=== PATIENT | female | born 1955 | race Caucasian/White ===

== ENCOUNTER 2019-08-20 18:46 | Emergency (ER) | payer BC ==
[~2019-08-20] VITALS: Ht 160 cm; Wt 120.2 kg
[~2019-08-20 18:46] MED LIST: ADULT LOW DOSE81 MG PO; ADVAIR 100-501 EACH; ALEVE220 MG; AZITHROMYCIN 2250 MG PO; BENADRYL25 MG PO; COLACE100 MG PO; DEMEROL50 MG; DITROPAN XL5 M1 PO; FEMHRT 1-5 TAB1 EACH; IBUPROFEN 400400 M1; LEXAPRO 10 MG T10 MG; MIRALAX255 GM; MUCINEX600 MG; NASOCORT; NORCO 5-325 TA1 EACH PO; NORVASC10 MG; OXYCODONE HCL 55 MG PO; PREDNISONE50 MG PO; PRINIVIL10 MG; SENNA PO; TYLENOL EX-STR500 M2 PO; ULTRAM 50MG TAB50 MG PO; UNISOM SLEEP AI25 MG; UNKNOWN ABX; XANAX XR1 MG PO; ZPAK PO; ZYRTEC10 M2; ZYRTEC10 M2 PO
[2019-08-20 19:59] LABS: ABSOLUTE BASOPHILS 0.1 thou/uL (0.0-0.2); ABSOLUTE EOSINOPHILS 0.1 thou/uL (0.0-0.7); ABSOLUTE MONOCYTES 0.7 thou/uL (0.0-1.2); ABSOLUTE NEUTROPHILS 6.5 thou/uL (1.6-8.1); BASOPHILS 1.2 %; EOSINOPHILS 1.2 %; HEMATOCRIT 38.7 % (37.0-47.0); MCH 29.5 pg (26.0-34.0); MCHC 33.6 g/dL (28.0-37.0); MCV 87.7 fL (80.0-100.0); MONOCYTES 6.9 %; MPV 8.5 fl. (7.2-11.1); NUCLEATED RBCS 0 /100WBC; PLATELET COUNT* 267 thou/uL (150-400); POLYS 69.7 %; RBC 4.41 mil/uL (4.20-5.00); RDW-CV 14.1 % (10.5-14.5); WBC 9.4 thou/uL (4.0-11.0)
[2019-08-20 20:02] LABS: INFLUENZA A ANTIGEN Negative (Negative); INFLUENZA B ANTIGEN Negative (Negative)
[2019-08-20 20:14] LABS: CALCIUM 8.3 mg/dL (8.5-10.1); CREATININE 0.8 mg/dL (0.6-1.3); POTASSIUM 3.4 mmol/L (3.5-5.1)
[2019-08-20 20:20] LABS: ALBUMIN 3.5 g/dL (3.4-5.0); TOTAL BILIRUBIN 0.4 mg/dL (<0.1-1.0)
[2019-08-20 20:43] LABS: URINE BILIRUBIN NEGATIVE (Negative); URINE BLOOD TRACE (Negative); URINE CLARITY CLEAR; URINE COLOR YELLOW; URINE GLUCOSE-RANDOM NEGATIVE (Negative); URINE KETONES NEGATIVE (Negative); URINE LEUKOCYTES-REFLEX NEGATIVE (Negative); URINE NITRITE-REFLEX NEGATIVE (Negative); URINE PROTEIN NEGATIVE (Negative); URINE SPECIFIC GRAVITY 1.025 (1.005-1.030); URINE UROBILINOGEN 0.2 E.U./dl (0.2-1.0)
[2019-08-20] MEDS ORDERED: VOLTAREN GEL 1100 G1 TOP (21:11)
[2019-08-20] MEDS ORDERED: PROTONIX40 M1 PO (21:12)
[2019-08-20] MEDS ORDERED: MONTELUKAST SODI4 M1 PO (21:12)
[2019-08-20] MEDS ORDERED: TOPAMAX100 MG PO (21:13)
[2019-08-20] MEDS ORDERED: LIPITOR80 MG PO (21:13)
[2019-08-20] MEDS ORDERED: ASA81BEC PO (21:13)
[2019-08-20] MEDS ORDERED: ZYRTEC10 M4 PO (21:14)
[2019-08-20] MEDS ORDERED: ESCITALOPRA5 MG/5 ML PO (21:14)
[2019-08-20] MEDS ORDERED: DERMACINRX5000 UNIT PO (21:15)
[2019-08-20 23:10] VITALS: BP 133/64
--- NOTE | 2019-08-21 16:35 | EKG ---
[place] [address] ELECTROCARDIOGRAM REPORT Name: CASSIE GREER Room: [facility]#: [id number] Admission: 08/20/19 Attend Phys: Discharge: 08/20/19 Date of : 55 Date of Service: 08/20/191849 Report #: [id number] THIS REPORT FOR: //name// [facility] ED Test Date: 2019-08-20 Test Time: 18:50:52 Pat Name: CASSIE GREER Department: Room: Gender: Immigration Case Manager: : 1955 Requested By: Maynor Roman Order Number: [id number] MD: Gabriel Dominguez Measurements Intervals [place] Rate: 79 P: 57 GA: 156 QRS: -4 QRSD: 88 T: 41 QT: 404 QTc: 464 Interpretive Statements Sinus rhythm Abnormal R-wave progression, early transition Compared to ECG 07/06/2011 11:13:57 No significant changes Electronically Signed On 08-21-2019 16:34:40 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
== END 2019-08-20 23:10 | disposition home or self-care (01) ==
LOC: M.ERS 18:46
PROVIDERS: Emergency Medicine
DX: F41.9 Anxiety disorder, unspecified (principal); R53.1 Weakness; I10 Essential (primary) hypertension; J45.909 Unspecified asthma, uncomplicated; Z88.5 Allergy status to narcotic agent; Z88.2 Allergy status to sulfonamides; Z88.8 Allergy status to other drugs, medicaments and biological substances